=== PATIENT | male | born 1965 | race Caucasian/White ===

== ENCOUNTER 2020-10-20 15:07 | Inpatient (IN) | payer OTHER ==
[2020-10-20 18:13] VITALS: BMI 39.4
[2020-10-20] MEDS ORDERED: ONDANSETRON *ODT* 4 MG TABLET SL PRN (20:29)
[2020-10-20] MEDS ORDERED: MENTHOL/PHENOL 1 EACH UD MM PRN (20:29)
[2020-10-20] MEDS ORDERED: LORazepam 1 MG TABLET PO PRN (20:29)
[2020-10-20] MEDS ORDERED: MAGNESIUM CITRATE 300 ML BOTTLE PO PRN (20:29)
[2020-10-20] MEDS ORDERED: BISMUTH SUBSALICYLATE 524 MG/30 ML UD PO PRN (20:29)
[2020-10-20] MEDS ORDERED: MAGNESIUM HYDROX 2400MG/30ML ORAL SUSPENSION 30 ML CUP PO PRN (20:29)
[2020-10-20] MEDS ORDERED: METHOCARBAMOL 500 MG TABLET PO PRN (20:29)
[2020-10-20] MEDS ORDERED: ACETAMINOPHEN 325 MG TABLET (FP) PO PRN ×2 (20:29)
[2020-10-20] MEDS ORDERED: MAG HYDROX/AL HYDROX/SIMETH 30 ML UNIT-DOSE CUP PO PRN (20:29)
[2020-10-20] MEDS ORDERED: IBUPROFEN 400 MG TABLET (FP) PO PRN (20:29)
[2020-10-20] MEDS: THIAMINE HCL 100 MG TABLET (FP) PO SCH (23:34)
[2020-10-20] MEDS: LORazepam 2 MG TABLET PO SCH (23:34)
[2020-10-20] MEDS: MELATONIN 5 MG TABLETS PO SCH (23:34)
[2020-10-20] MEDS: hydrOXYzine PAMOATE 25 MG CAPSULE (FP) PO PRN (23:34)
[2020-10-21] MEDS: LORazepam 2 MG TABLET PO SCH ×5 (05:36→22:22)
[2020-10-21 10:01] LABS: HEMATOCRIT 39.2 % (35.4-49); MCH 26.5 pg (25.7-33.7); MCHC 33.1 g/dl (32.0-35.9); MEAN PLT VOLUME 9.7 fl (7.5-11.1); PLATELET COUNT 174 K/MM3 (134-434); RDW 15.9 % (11.9-15.9); WHITE BLOOD COUNT 6.9 K/mm3 (4.0-10.0)
[2020-10-21 10:13] LABS: ALBUMIN 2.8 g/dl (3.4-5.0)
[2020-10-21 10:14] LABS: BILIRUBIN,TOTAL 0.1 mg/dL (0.2-1)
[2020-10-21 10:16] LABS: BLOOD UREA NITROGEN 15.1 mg/dL (7-18)
[2020-10-21 10:17] LABS: CREATININE 0.9 mg/dL (0.55-1.3); TOT PROT 6.3 g/dl (6.4-8.2)
[2020-10-21] MEDS: PRENATAL VITAMINS W/ FOLIC ACID TABLET (FP) PO SCH (10:30)
[2020-10-21] MEDS: METOPROLOL TARTRATE 50 MG TABLET (FP) PO SCH (12:15)
[2020-10-21] MEDS ORDERED: METHADONE HCL 10 MG TABLET PO ONE (14:37)
[2020-10-21] MEDS ORDERED: METHADONE 80 MG, METHADONE 5 MG PO ONE (14:37)
[2020-10-21] MEDS ORDERED: METHADONE HCL 40 MG DISPERSABLE TABLET ONE (14:57)
[2020-10-21] MEDS ORDERED: METHADONE HCL 5 MG TABLET ONE (14:58)
[2020-10-21] MEDS: FLUoxetine HCL 20 MG CAPSULE PO SCH (15:00)
[2020-10-21] MEDS ORDERED: SUVOREXANT 10 MG TABLET PO PRN (22:00)
[2020-10-21] MEDS: THIAMINE HCL 100 MG TABLET (FP) PO SCH (22:21)
[2020-10-21] MEDS: MELATONIN 5 MG TABLETS PO SCH (22:22)
[2020-10-21] MEDS: DOXEPIN HCL 10 MG CAPSULE PO SCH (23:16)
[2020-10-22] MEDS: LORazepam 1 MG TABLET PO SCH ×4 (05:29→22:08)
[2020-10-22] MEDS ORDERED: METHADONE HCL 5 MG TABLET ONE (05:30)
[2020-10-22] MEDS: METHADONE 80 MG, METHADONE 5 MG PO SCH (05:30)
[2020-10-22] MEDS ORDERED: METHADONE HCL 40 MG DISPERSABLE TABLET ONE (05:30)
[2020-10-22] MEDS ORDERED: METHADONE HCL 10 MG TABLET PO SCH (06:00)
[2020-10-22] MEDS: FLUoxetine HCL 20 MG CAPSULE PO SCH (10:29)
[2020-10-22] MEDS: METOPROLOL TARTRATE 50 MG TABLET (FP) PO SCH (10:29)
[2020-10-22] MEDS: PRENATAL VITAMINS W/ FOLIC ACID TABLET (FP) PO SCH (10:29)
[2020-10-22] MEDS: THIAMINE HCL 100 MG TABLET (FP) PO SCH (22:07)
[2020-10-22] MEDS: MELATONIN 5 MG TABLETS PO SCH (22:08)
[2020-10-22] MEDS: DOXEPIN HCL 10 MG CAPSULE PO SCH (22:08)
[2020-10-23] MEDS ORDERED: LORazepam 0.5 MG TABLET PO PRN
[2020-10-23] MEDS ORDERED: METHADONE HCL 40 MG DISPERSABLE TABLET ONE (04:52)
[2020-10-23] MEDS ORDERED: METHADONE HCL 5 MG TABLET ONE (04:53)
[2020-10-23] MEDS: METHADONE 80 MG, METHADONE 5 MG PO SCH (05:31)
[2020-10-23] MEDS: LORazepam 0.5 MG TABLET PO SCH ×4 (05:31→23:38)
[2020-10-23] MEDS: FLUoxetine HCL 20 MG CAPSULE PO SCH (10:34)
[2020-10-23] MEDS: PRENATAL VITAMINS W/ FOLIC ACID TABLET (FP) PO SCH (10:34)
[2020-10-23] MEDS: METOPROLOL TARTRATE 50 MG TABLET (FP) PO SCH ×2 (10:36→23:38)
[2020-10-23] MEDS: DOXEPIN HCL 10 MG CAPSULE PO SCH (23:38)
[2020-10-23] MEDS: MELATONIN 5 MG TABLETS PO SCH (23:40)
[2020-10-23] MEDS: THIAMINE HCL 100 MG TABLET (FP) PO SCH (23:40)
[2020-10-24] MEDS ORDERED: METHADONE HCL 40 MG DISPERSABLE TABLET ONE (03:33)
[2020-10-24] MEDS ORDERED: METHADONE HCL 5 MG TABLET ONE (03:34)
[2020-10-24] MEDS ORDERED: LORazepam 0.5 MG TABLET PO ONE (05:00)
[2020-10-24] MEDS: METHADONE 80 MG, METHADONE 5 MG PO SCH (05:40)
[2020-10-24] MEDS: METOPROLOL TARTRATE 50 MG TABLET (FP) PO SCH (11:00)
[2020-10-24] MEDS: FLUoxetine HCL 20 MG CAPSULE PO SCH (11:00)
[2020-10-24] MEDS: PRENATAL VITAMINS W/ FOLIC ACID TABLET (FP) PO SCH (11:00)
[2020-10-24] MEDS: hydrOXYzine PAMOATE 25 MG CAPSULE (FP) PO PRN (11:00)
[2020-10-24 12:52] VITALS: BP 149/111; PULSE 68; TEMP 98.1
[2020-10-25 06:06] LABS: SARS-CoV-2 NAA Not Detected (Not Detected)
== END 2020-10-24 12:45 | disposition home or self-care (01) | DRG 773 ==
LOC: YASAS 15:07 → Y3N 22:17 → Y6N 22:26
PROVIDERS: ADMIT Allergy & Immunology; ATTEND Allergy & Immunology
PROC: HZ2ZZZZ Detoxification Services for Substance Abuse Treatment (ICD-10-PCS; principal; 2020-10-20)
DX: F13.230 Sedative, hypnotic or anxiolytic dependence with withdrawal, uncomplicated (principal); F11.20 Opioid dependence, uncomplicated; F12.20 Cannabis dependence, uncomplicated; F17.210 Nicotine dependence, cigarettes, uncomplicated; F19.282 Other psychoactive substance dependence with psychoactive substance-induced sleep disorder; F33.1 Major depressive disorder, recurrent, moderate; F31.9 Bipolar disorder, unspecified; I10 Essential (primary) hypertension; J45.909 Unspecified asthma, uncomplicated; K21.9 Gastro-esophageal reflux disease without esophagitis; R76.9 Abnormal immunological finding in serum, unspecified; Z62.810 Personal history of physical and sexual abuse in childhood; Z86.19 Personal history of other infectious and parasitic diseases
CPT/HCPCS: 36415; 80053; 82962; 83036; 85027; 86780; 93005; 93010; C9803; U0003; U0005